=== PATIENT | male | born 1965 | race Caucasian/White ===

== ENCOUNTER 2021-10-11 10:06 | Inpatient (IN) ==
[2021-10-11] MEDS ORDERED: ALUMINUM/MAGNES/SIMETH MAX STR 30 ML UDCUP PO PRN (10:16)
[2021-10-11] MEDS ORDERED: BISACODYL 5 MG TABLET PO PRN (10:16)
[2021-10-11] MEDS ORDERED: hydrALAZINE 20 MG/1 ML VIAL IV PRN (10:16)
[2021-10-11] MEDS ORDERED: SIMETHICONE CHEW 125 MG TABLET PO PRN (10:16)
[2021-10-11] MEDS ORDERED: ACETAMINOPHEN 325 MG TABLET PO PRN (10:16)
[2021-10-11] MEDS ORDERED: ONDANSETRON 4 MG/2 ML VIAL IV PRN (10:16)
[2021-10-11] MEDS ORDERED: ZALEPLON 5 MG CAPSULE PO PRN (10:16)
[2021-10-11] MEDS ORDERED: MORPHINE 2 MG/1 ML SYRINGE IV PRN (10:16)
[2021-10-11] MEDS ORDERED: CALCIUM CARBONATE CHEW 500 MG TABLET PO PRN (10:16)
[2021-10-11] MEDS ORDERED: LACTULOSE 20 GM/30 ML UDCUP PO PRN (10:16)
[2021-10-11] MEDS ORDERED: SODIUM CHLORIDE 0.9% 1,000 ML IV SCH (10:30)
[2021-10-11 10:42] LABS: Basophils % 0.3 % (0.0-0.8); Eosinophils # 0.1 10*3/uL (0.0-0.87); Eosinophils % 0.5 % (0.00-10.9); Hemoglobin 15.9 GM/DL (14.0-18.0); Immature Granulocytes % 0.5 %; Immature Granulocytes Absolute 0.06 #; Lymphocytes # 1.5 10*3/uL (1.4-4.0); Lymphocytes % 11.8 % (21.2-54.2); Mean Corpuscular HGB Conc 33.8 GM/DL (32-36); Mean Corpuscular Volume 90.4 FL (87-102); Mean Platelet Volume 10.6 FL (9.6-12.0); Monocytes # 0.6 10*3/uL (0.11-0.8); Monocytes % 4.9 % (1.7-12.7); Platelet Count 231 T/CUMM (130-400); Red Cell Distribution Width 13.3 % (9.3-17.3); White Blood Count 12.4 T/CUMM (4-12)
[2021-10-11] MEDS ORDERED: fentaNYL 100 MCG/2 ML VIAL ONE ×2 (10:42→15:45)
[2021-10-11] MEDS ORDERED: MIDAZOLAM 2 MG/2 ML VIAL ONE ×4 (10:42→16:58)
[2021-10-11 11:02] LABS: Albumin 4.2 G/DL (3.4-5.0); Bilirubin,Total 0.8 MG/DL (0.20-1.00); Osmolality,Calculated 283.1 MOS/KG (273-304); Potassium 4.3 MMOL/L (3.5-5.1); Total Protein 7.2 G/DL (6.4-8.2)
[2021-10-11 11:05] VITALS: BP 125/104
[2021-10-11] MEDS ORDERED: ceFAZolin 1,000 MG VIAL IRRIG ONE (13:21)
[2021-10-11] MEDS ORDERED: diphenhydrAMINE CAP 50 MG CAPSULE PO ONE (13:21)
[2021-10-11] MEDS ORDERED: DIAZEPAM 5 MG TABLET PO ONE (13:21)
[2021-10-11] MEDS ORDERED: ceFAZolin 1,000 MG VIAL ONE ×2 (15:45→17:17)
[2021-10-11] MEDS ORDERED: TISSUE ADHESIVE 1 EACH APPLICATOR TOP ONE (15:45)
[2021-10-11] MEDS ORDERED: HEPARIN/NACL 0.9% 2 UNITS/ML 1,000 UNIT/500 ML BAG IV ONE (15:45)
[2021-10-12 05:20] LABS: Basophils % 0.3 % (0.0-0.8); Eosinophils # 0.1 10*3/uL (0.0-0.87); Hematocrit 45.2 VOL% (42.0-52.0); Immature Granulocytes % 0.6 %; Immature Granulocytes Absolute 0.07 #; Lymphocytes # 1.3 10*3/uL (1.4-4.0); Mean Corpuscular HGB Conc 33.2 GM/DL (32-36); Mean Corpuscular Volume 91.7 FL (87-102); Monocytes # 0.6 10*3/uL (0.11-0.8); Monocytes % 5.6 % (1.7-12.7); Neutrophils % 81.5 % (38.7-73.9); Platelet Count 175 T/CUMM (130-400); Red Blood Count 4.93 MC/CUMM (3.8-5.5); Red Cell Distribution Width 13.3 % (9.3-17.3); White Blood Count 11.5 T/CUMM (4-12)
[2021-10-12 05:37] LABS: Thyroid Stimulating Hormone 3.07 uIU/ml (0.358-3.74)
[2021-10-12] MEDS ORDERED: PANTOPRAZOLE 40 MG TABLET PO SCH (09:00)
[2021-10-12] MEDS ORDERED: ENOXAPARIN 40 MG/0.4 ML SYRINGE SUBCUT SCH (09:00)
[2021-10-12] MEDS ORDERED: FLUTICASONE 50 MCG NASAL SPRAY 16 GM BOTTLE BOTH NARES SCH (10:30)
[2021-10-12] MEDS ORDERED: ROSUVASTATIN 20 MG TABLET PO SCH (10:30)
[2021-10-12] MEDS ORDERED: FEXOFENADINE 180 MG TABLET PO SCH (10:30)
[2021-10-12] MEDS ORDERED: ASPIRIN EC 81 MG TABLET PO SCH (10:30)
[2021-10-12] MEDS ORDERED: METOPROLOL SUCCINATE XL 25 MG TABLET PO SCH (10:30)
== END 2021-10-12 14:25 | disposition home or self-care (01) | DRG 243 ==
LOC: EDUNIT# → EDBD → N.ED 10:06 → N.EDINP 10:34 → N.CC 11:30
PROVIDERS: ADMIT Internal Medicine Cardiovascular Disease; ATTEND Internal Medicine Cardiovascular Disease